=== PATIENT | female | born 1945 | race Caucasian/White ===

== ENCOUNTER 2017-10-15 08:29 | Outpatient (CLI) | payer OTHER, MEDICARE ==
[~2017-10-15 08:29] MED LIST: EXCED PO; HYDR-4100 PO; IBUP-1969 PO; LOSA100T11 PO; LOVA40TA75 PO; MAGN400T39 PO; METO-442 PO; OMEP20CA10 PO; VITD2000 PO
== END 2017-10-15 20:08 | disposition home or self-care (01) ==
LOC: SUS 08:29
PROVIDERS: ATTEND Orthopaedic Surgery
DX: M79.605 Pain in left leg (principal); M79.604 Pain in right leg; R60.0 Localized edema
CPT/HCPCS: 93970

== ENCOUNTER 2022-10-30 10:43 | Inpatient (IN) | payer OTHER, MEDICARE ==
[~2022-10-30] VITALS: Ht 167.6 cm; Wt 66.2 kg
[~2022-10-30 10:43] MED LIST changes: +HYDR-3927 PO; -HYDR-4100 PO; -LOSA100T11 PO; +LOSA100T4 PO; -OMEP20CA10 PO; +OMEP20CA15 PO
[2022-10-30 10:54] VITALS: BP_SYST 143
[2022-10-30] MEDS ORDERED: FUROSEMIDE 40 MG/4 ML VIAL IVP ONE (11:00)
[2022-10-30 11:32] LABS: BASOPHILS % (AUTO) 0.5 % (0.0-2.0); EOSINOPHILS # (AUTO) 0.1 K/uL (0.0-0.4); EOSINOPHILS % (AUTO) 2.3 % (0.0-4.0); HEMATOCRIT 39.6 % (36-48); HEMOGLOBIN 13.4 g/dL (12.0-16.0); LYMPHOCYTES # (AUTO) 0.5 K/uL (1.0-5.5); LYMPHOCYTES % (AUTO) 10.1 % (20.5-51.5); MEAN CORPUSCULAR HEMOGLOBIN 28 pg (27-31); MEAN CORPUSCULAR HGB CONC 34 % (32-36); MEAN CORPUSCULAR VOLUME 82 fL (79.0-98.0); MONOCYTES # (AUTO) 0.6 K/uL (0.0-1.0); MONOCYTES % (AUTO) 12.6 % (1.7-9.3); NEUTROPHILS # (AUTO) 3.5 K/uL (1.8-7.7); NEUTROPHILS % (AUTO) 74.5 % (40.0-70.0); PLATELET COUNT (AUTO) 158 K/uL (130-430); RED BLOOD CELL COUNT(AUTO) 4.82 MIL/uL (4.2-6.2); RED CELL DISTRIBUTION WIDTH 15.1 % (9.0-15.0); WHITE BLOOD COUNT (AUTO) 4.7 K/uL (4.8-10.8)
[2022-10-30 11:50] LABS: ALANINE AMINOTRANSFERASE 15 U/L (12-78); ALBUMIN 3.2 g/dL (3.4-4.8); ANION GAP 8 (5-15); ASPARTATE AMINOTRANSFERASE 18 U/L (10-37); CALCIUM 8.7 mg/dL (8.4-11.0); CHLORIDE 95 mmol/L (98-107); CREATININE 0.88 mg/dL (0.55-1.30); GLUCOSE 102 mg/dL (70-99); TOTAL BILIRUBIN 1.5 mg/dL (0.0-1.0); UREA NITROGEN, BLOOD 13 mg/dL (8-21)
[2022-10-30] MEDS ORDERED: LASI20 PO (12:52)
[2022-10-30] MEDS ORDERED: LORazepam 1 MG TABLET PO ONE (13:15)
[2022-10-30] MEDS ORDERED: METO25TA6 PO (14:08)
[2022-10-30] MEDS ORDERED: LOSA25TA3 PO (14:08)
[2022-10-30] MEDS ORDERED: iohexoL 350 mgI/mL, 100 ML INFUS..BTL IV ONE (14:49)
[2022-10-30] MEDS ORDERED: IPRATROPIUM/ALBUTEROL SULFATE 3 ML AMPUL.NEB (DUONEB) INH PRN (22:30)
[2022-10-30 23:05] LABS: BILIRUBIN,URINE NEGATIVE (NEGATIVE); BLOOD, URINE NEGATIVE (NEGATIVE); CLARITY/URINE CLEAR (CLEAR); COLOR,URINE YELLOW (YELLOW); GLUCOSE,URINE NEGATIVE (NEGATIVE); KETONES,URINE NEGATIVE (NEGATIVE); LEUKOCYTE ESTERASE ,URINE NEGATIVE (NEGATIVE); NITRITE, URINE POSITIVE (NEGATIVE); PH,URINE 6.5 (5.0-8.0); PROTEIN URINE NEGATIVE (NEGATIVE); UROBILINOGEN,URINE 0.2 (0.2-1.0)
[2022-10-30 23:26] LABS: BACTERIA,URINE MODERATE /HPF (None Seen); RBC,URINE 0-3 /HPF (0-3); WBC,URINE 0-3 /HPF (0-3)
[2022-10-30 23:27] LABS: MUCUS,URINE None Seen /LPF (None Seen); YEAST,URINE Few /HPF (None Seen)
[2022-10-31 00:44] VITALS: BP_SYST 145
[2022-10-31 06:09] LABS: BASOPHILS % (AUTO) 0.8 % (0.0-2.0); EOSINOPHILS # (AUTO) 0.3 K/uL (0.0-0.4); EOSINOPHILS % (AUTO) 4.7 % (0.0-4.0); HEMATOCRIT 36.7 % (36-48); HEMOGLOBIN 12.4 g/dL (12.0-16.0); LYMPHOCYTES # (AUTO) 0.5 K/uL (1.0-5.5); LYMPHOCYTES % (AUTO) 8.4 % (20.5-51.5); MEAN CORPUSCULAR HEMOGLOBIN 28 pg (27-31); MEAN CORPUSCULAR HGB CONC 34 % (32-36); MEAN CORPUSCULAR VOLUME 83 fL (79.0-98.0); MONOCYTES # (AUTO) 0.8 K/uL (0.0-1.0); MONOCYTES % (AUTO) 15.3 % (1.7-9.3); NEUTROPHILS # (AUTO) 3.9 K/uL (1.8-7.7); NEUTROPHILS % (AUTO) 70.8 % (40.0-70.0); PLATELET COUNT (AUTO) 149 K/uL (130-430); RED BLOOD CELL COUNT(AUTO) 4.43 MIL/uL (4.2-6.2); RED CELL DISTRIBUTION WIDTH 14.7 % (9.0-15.0); WHITE BLOOD COUNT (AUTO) 5.4 K/uL (4.8-10.8)
[2022-10-31 06:24] LABS: ALANINE AMINOTRANSFERASE 11 U/L (12-78); ALBUMIN 2.6 g/dL (3.4-4.8); ANION GAP 3 (5-15); ASPARTATE AMINOTRANSFERASE 15 U/L (10-37); CALCIUM 8.4 mg/dL (8.4-11.0); CHLORIDE 96 mmol/L (98-107); CREATININE 0.76 mg/dL (0.55-1.30); GLUCOSE 89 mg/dL (70-99); TOTAL BILIRUBIN 1.6 mg/dL (0.0-1.0); UREA NITROGEN, BLOOD 16 mg/dL (8-21)
[2022-10-31] MEDS: IPRATROPIUM/ALBUTEROL SULFATE 3 ML AMPUL.NEB (DUONEB) INH SCH ×6 (07:25→23:01)
[2022-10-31 07:45] VITALS: BP_SYST 133
[2022-10-31 08:13] VITALS: BP_SYST 141
[2022-10-31] MEDS: FUROSEMIDE 40 MG/4 ML VIAL IVP SCH (08:38)
[2022-10-31] MEDS: PANTOPRAZOLE SODIUM 40 MG/VIAL (PROTONIX) IVP SCH (08:38)
[2022-10-31] MEDS: LOSARTAN POTASSIUM 50 MG TABLET (COZAAR) PO SCH (08:39)
[2022-10-31] MEDS: METOPROLOL TARTRATE 50 MG TABLET PO SCH ×2 (08:40→21:10)
[2022-10-31] MEDS ORDERED: OMEPRAZOLE Non-Formulary 20 MG CAPSULE.DR PO SCH (09:00)
[2022-10-31 12:24] VITALS: BP_SYST 92
[2022-10-31] MEDS: LEVOFLOXACIN 250 MG/D5W 50 ML IV SCH (14:52)
[2022-10-31 17:11] VITALS: BP_SYST 96
[2022-10-31 20:05] VITALS: BP_SYST 109
[2022-11-01 00:47] VITALS: BP_SYST 111
[2022-11-01] MEDS: IPRATROPIUM/ALBUTEROL SULFATE 3 ML AMPUL.NEB (DUONEB) INH SCH ×5 (03:56→20:24)
[2022-11-01 08:00] VITALS: BP_SYST 132
[2022-11-01 08:05] LABS: BASOPHILS % (AUTO) 0.4 % (0.0-2.0); EOSINOPHILS # (AUTO) 0.2 K/uL (0.0-0.4); EOSINOPHILS % (AUTO) 2.9 % (0.0-4.0); HEMATOCRIT 36.8 % (36-48); HEMOGLOBIN 12.3 g/dL (12.0-16.0); LYMPHOCYTES # (AUTO) 0.4 K/uL (1.0-5.5); LYMPHOCYTES % (AUTO) 6.3 % (20.5-51.5); MEAN CORPUSCULAR HEMOGLOBIN 28 pg (27-31); MEAN CORPUSCULAR HGB CONC 34 % (32-36); MEAN CORPUSCULAR VOLUME 83 fL (79.0-98.0); MONOCYTES # (AUTO) 0.8 K/uL (0.0-1.0); MONOCYTES % (AUTO) 12.2 % (1.7-9.3); NEUTROPHILS # (AUTO) 5.1 K/uL (1.8-7.7); NEUTROPHILS % (AUTO) 78.2 % (40.0-70.0); PLATELET COUNT (AUTO) 134 K/uL (130-430); RED BLOOD CELL COUNT(AUTO) 4.44 MIL/uL (4.2-6.2); RED CELL DISTRIBUTION WIDTH 14.9 % (9.0-15.0); WHITE BLOOD COUNT (AUTO) 6.5 K/uL (4.8-10.8)
[2022-11-01 08:18] LABS: ALANINE AMINOTRANSFERASE 10 U/L (12-78); ALBUMIN 2.6 g/dL (3.4-4.8); ANION GAP 4 (5-15); ASPARTATE AMINOTRANSFERASE 18 U/L (10-37); BILIRUBIN,DIRECT 0.4 mg/dL (0.0-0.3); CALCIUM 8.5 mg/dL (8.4-11.0); CHLORIDE 94 mmol/L (98-107); CHOLESTEROL 135 mg/dL (<200); CREATININE 0.93 mg/dL (0.55-1.30); GLUCOSE 98 mg/dL (70-99); HDL CHOLESTEROL 67 mg/dL (>55); THYROID STIMULATING HORMONE 1.16 uIu/mL (0.34-4.82); TOTAL BILIRUBIN 1.5 mg/dL (0.0-1.0); TRIGLYCERIDES 26 mg/dL (30-150); UREA NITROGEN, BLOOD 17 mg/dL (8-21)
[2022-11-01] MEDS: PANTOPRAZOLE SODIUM 40 MG/VIAL (PROTONIX) IVP SCH (08:43)
[2022-11-01] MEDS: FUROSEMIDE 40 MG/4 ML VIAL IVP SCH (08:44)
[2022-11-01] MEDS ORDERED: LOSARTAN POTASSIUM 25 MG TABLET PO SCH (09:00)
[2022-11-01] MEDS: METOPROLOL TARTRATE 50 MG TABLET PO SCH ×2 (09:00→21:19)
[2022-11-01] MEDS: LOSARTAN POTASSIUM 50 MG TABLET (COZAAR) PO SCH (09:00)
[2022-11-01 09:45] VITALS: BP_SYST 92
[2022-11-01 12:07] VITALS: BP_SYST 123
[2022-11-01] MEDS: LEVOFLOXACIN 250 MG/D5W 50 ML IV SCH (12:47)
[2022-11-01 16:57] VITALS: BP_SYST 113
[2022-11-01 22:18] VITALS: BP_SYST 119
[2022-11-02 00:51] VITALS: BP_SYST 139
[2022-11-02] MEDS: IPRATROPIUM/ALBUTEROL SULFATE 3 ML AMPUL.NEB (DUONEB) INH SCH ×7 (01:17→23:00)
[2022-11-02 04:56] LABS: ANION GAP 6 (5-15); CALCIUM 8.4 mg/dL (8.4-11.0); CHLORIDE 94 mmol/L (98-107); CREATININE 0.91 mg/dL (0.55-1.30); GLUCOSE 85 mg/dL (70-99); UREA NITROGEN, BLOOD 21 mg/dL (8-21)
[2022-11-02 05:39] VITALS: BP_SYST 120
[2022-11-02 06:10] LABS: BASOPHILS % (AUTO) 0.5 % (0.0-2.0); EOSINOPHILS # (AUTO) 0.3 K/uL (0.0-0.4); EOSINOPHILS % (AUTO) 5.5 % (0.0-4.0); HEMATOCRIT 36.2 % (36-48); HEMOGLOBIN 12.4 g/dL (12.0-16.0); LYMPHOCYTES # (AUTO) 0.7 K/uL (1.0-5.5); LYMPHOCYTES % (AUTO) 10.6 % (20.5-51.5); MEAN CORPUSCULAR HEMOGLOBIN 28 pg (27-31); MEAN CORPUSCULAR HGB CONC 34 % (32-36); MEAN CORPUSCULAR VOLUME 83 fL (79.0-98.0); MONOCYTES # (AUTO) 0.8 K/uL (0.0-1.0); MONOCYTES % (AUTO) 12.7 % (1.7-9.3); NEUTROPHILS # (AUTO) 4.4 K/uL (1.8-7.7); NEUTROPHILS % (AUTO) 70.7 % (40.0-70.0); PLATELET COUNT (AUTO) 142 K/uL (130-430); RED BLOOD CELL COUNT(AUTO) 4.39 MIL/uL (4.2-6.2); WHITE BLOOD COUNT (AUTO) 6.3 K/uL (4.8-10.8)
[2022-11-02 08:00] VITALS: BP_SYST 120
[2022-11-02] MEDS ORDERED: MILK OF MAGNESIA 30 ML UDC PO ONE (08:45)
[2022-11-02] MEDS ORDERED: DOCUSATE SODIUM 250 MG CAPSULE PO PRN (08:45)
[2022-11-02] MEDS: ATORVASTATIN 10 MG TABLET PO SCH (09:35)
[2022-11-02] MEDS: METOPROLOL TARTRATE 50 MG TABLET PO SCH ×2 (09:37→22:01)
[2022-11-02] MEDS: LOSARTAN POTASSIUM 50 MG TABLET (COZAAR) PO SCH (09:38)
[2022-11-02] MEDS: FUROSEMIDE 40 MG/4 ML VIAL IVP SCH (09:50)
[2022-11-02] MEDS: PANTOPRAZOLE SODIUM 40 MG/VIAL (PROTONIX) IVP SCH (09:50)
[2022-11-02 12:05] VITALS: BP_SYST 122
[2022-11-02] MEDS: LEVOFLOXACIN 250 MG/D5W 50 ML IV SCH (12:24)
[2022-11-02] MEDS ORDERED: ALPRAZolam 0.25 MG TABLET PO PRN (13:30)
[2022-11-02 17:19] VITALS: BP_SYST 132
[2022-11-02 23:08] VITALS: BP_SYST 117
[2022-11-03] VITALS (7 sets, daily range): BP systolic 93–119
[2022-11-03] MEDS: IPRATROPIUM/ALBUTEROL SULFATE 3 ML AMPUL.NEB (DUONEB) INH SCH ×5 (03:00→23:00)
[2022-11-03 07:20] LABS: ANION GAP 4 (5-15); CALCIUM 8.5 mg/dL (8.4-11.0); CHLORIDE 93 mmol/L (98-107); CREATININE 0.89 mg/dL (0.55-1.30); GLUCOSE 89 mg/dL (70-99); UREA NITROGEN, BLOOD 32 mg/dL (8-21)
[2022-11-03 07:21] LABS: BASOPHILS # (AUTO) 0.1 K/uL (0.0-0.2); EOSINOPHILS # (AUTO) 0.4 K/uL (0.0-0.4); EOSINOPHILS % (AUTO) 6.3 % (0.0-4.0); HEMATOCRIT 37.8 % (36-48); HEMOGLOBIN 12.7 g/dL (12.0-16.0); LYMPHOCYTES # (AUTO) 0.6 K/uL (1.0-5.5); LYMPHOCYTES % (AUTO) 9.8 % (20.5-51.5); MEAN CORPUSCULAR HEMOGLOBIN 28 pg (27-31); MEAN CORPUSCULAR HGB CONC 34 % (32-36); MEAN CORPUSCULAR VOLUME 82 fL (79.0-98.0); MONOCYTES # (AUTO) 0.9 K/uL (0.0-1.0); MONOCYTES % (AUTO) 13.9 % (1.7-9.3); NEUTROPHILS # (AUTO) 4.2 K/uL (1.8-7.7); PLATELET COUNT (AUTO) 147 K/uL (130-430); RED BLOOD CELL COUNT(AUTO) 4.59 MIL/uL (4.2-6.2); RED CELL DISTRIBUTION WIDTH 15.3 % (9.0-15.0); WHITE BLOOD COUNT (AUTO) 6.2 K/uL (4.8-10.8)
[2022-11-03] MEDS: METOPROLOL TARTRATE 50 MG TABLET PO SCH ×2 (09:37→21:00)
[2022-11-03] MEDS: SERTRALINE HCL 50 MG TABLET PO SCH (09:38)
[2022-11-03] MEDS: ATORVASTATIN 10 MG TABLET PO SCH (09:39)
[2022-11-03] MEDS: LOSARTAN POTASSIUM 50 MG TABLET (COZAAR) PO SCH (09:40)
[2022-11-03] MEDS: FUROSEMIDE 40 MG/4 ML VIAL IVP SCH (09:43)
[2022-11-03] MEDS: PANTOPRAZOLE SODIUM 40 MG/VIAL (PROTONIX) IVP SCH (09:44)
[2022-11-03] MEDS: LEVOFLOXACIN 250 MG/D5W 50 ML IV SCH (12:15)
[2022-11-04 00:55] VITALS: BP_SYST 96
[2022-11-04] MEDS: IPRATROPIUM/ALBUTEROL SULFATE 3 ML AMPUL.NEB (DUONEB) INH SCH ×4 (03:00→16:14)
[2022-11-04 08:00] VITALS: BP_SYST 101
[2022-11-04] MEDS: PANTOPRAZOLE SODIUM 40 MG/VIAL (PROTONIX) IVP SCH (08:25)
[2022-11-04] MEDS: LOSARTAN POTASSIUM 50 MG TABLET (COZAAR) PO SCH (08:26)
[2022-11-04] MEDS: ATORVASTATIN 10 MG TABLET PO SCH (08:26)
[2022-11-04] MEDS: FUROSEMIDE 40 MG/4 ML VIAL IVP SCH (08:26)
[2022-11-04] MEDS: SERTRALINE HCL 50 MG TABLET PO SCH (08:27)
[2022-11-04] MEDS: METOPROLOL TARTRATE 50 MG TABLET PO SCH (08:27)
[2022-11-04] MEDS ORDERED: FUROSEMIDE 40 MG TABLET PO SCH (09:00)
[2022-11-04] MEDS: LEVOFLOXACIN 250 MG/D5W 50 ML IV SCH (11:15)
[2022-11-04 12:22] VITALS: BP_SYST 99
[2022-11-04 15:28] VITALS: BP_SYST 99
[2022-11-04 16:29] VITALS: BP_SYST 91
[2022-11-04] MEDS ORDERED: HYDROcodone/ACETAMIN 10-325 MG TAB PO PRN (16:30)
[2022-11-04] MEDS ORDERED: LOVASTATIN 20 MG TABLET PO SCH (18:00)
[2022-11-04] MEDS ORDERED: EXCEDRIN EXTRA STRENGTH PO SCH (21:00)
[2022-11-04] MEDS ORDERED: METOPROLOL TARTRATE 25 MG TABLET PO SCH (21:00)
[2022-11-05] MEDS ORDERED: IBUPROFEN 600 MG TABLET PO SCH (09:00)
[2022-11-05] MEDS ORDERED: CHOLECALCIFEROL (VITAMIN D3) 2,000 UNIT TABLET PO SCH (09:00)
== END 2022-11-04 17:54 | DRG 291 ==
LOC: SED 10:43 → STU 15:30 → SMU 11-03 21:35
PROVIDERS: ADMIT Internal Medicine; ATTEND Internal Medicine
DX: I11.0 Hypertensive heart disease with heart failure (principal); I50.23 Acute on chronic systolic (congestive) heart failure; J96.01 Acute respiratory failure with hypoxia; J44.1 Chronic obstructive pulmonary disease with (acute) exacerbation; Z96.642 Presence of left artificial hip joint; F41.9 Anxiety disorder, unspecified; E78.00 Pure hypercholesterolemia, unspecified; E78.5 Hyperlipidemia, unspecified; L40.50 Arthropathic psoriasis, unspecified; I35.0 Nonrheumatic aortic (valve) stenosis; I34.0 Nonrheumatic mitral (valve) insufficiency; G89.29 Other chronic pain; Z20.822 Contact with and (suspected) exposure to COVID-19; Z87.891 Personal history of nicotine dependence; Z88.0 Allergy status to penicillin; Z79.899 Other long term (current) drug therapy; Z81.8 Family history of other mental and behavioral disorders
CPT/HCPCS: 36415; 36600; 71045; 71275; 76376; 80048; 80053; 80061; 81000; 82248; 82550; 82803-TC; 83735; 83880; 84443; 84484; 85025; 87086; 93005; 93306; 93970; 94640; 94760; 97110-GP; 97116-GP; 97163-GP; 97530-GP; 99285; C9113; G0378; J1940; J1956; Q9967

== ENCOUNTER 2023-06-01 15:29 | Inpatient (IN) | payer OTHER, MEDICARE ==
[~2023-06-01] VITALS: Ht 165.1 cm; Wt 63.5 kg
[~2023-06-01 15:29] MED LIST changes: +LASI20 PO; +LOSA-415 PO; -LOSA100T4 PO
[2023-06-01 15:41] VITALS: BP_SYST 141; PULSE 79; RESP 20; TEMP 98; O2SAT 98
[2023-06-01] MEDS ORDERED: ACETAMINOPHEN 500 MG TABLET PO ONE (16:15)
[2023-06-01] MEDS ORDERED: NALOXONE HCL 0.4 MG/ML AMP (NARCAN) IVP PRN ×3 (19:30)
[2023-06-01] MEDS ORDERED: HYDROmorphone 1 MG/ML INJ. CARTRIDGE IVP PRN (19:30)
[2023-06-01] MEDS ORDERED: HYDROcodone/ACETAMIN 10-325 MG TAB PO PRN (19:30)
[2023-06-01] MEDS ORDERED: HYDROcodone/ACETAMIN 5-325 MG TAB (NORCO/ VICODIN) PO PRN (19:45)
[2023-06-01] MEDS ORDERED: ACET325T39 PO (20:47)
[2023-06-01] MEDS ORDERED: LOVA40TA75 PO (20:47)
[2023-06-01] MEDS ORDERED: MAGN400T7 PO (20:47)
[2023-06-01] MEDS ORDERED: [UNRECOGNIZED DRUG - CODE] PO (20:47)
[2023-06-01] MEDS ORDERED: FURO40TA5 PO (20:47)
[2023-06-01] MEDS ORDERED: DOCU250C71 PO (20:47)
[2023-06-01] MEDS ORDERED: ANT30 PO (20:47)
[2023-06-01] MEDS ORDERED: BISA10SU61 RC (20:47)
[2023-06-01] MEDS ORDERED: LOPE-178 PO (20:47)
[2023-06-01] MEDS ORDERED: HYDR-3927 PO (20:47)
[2023-06-01] MEDS ORDERED: LORA-259 PO (20:47)
[2023-06-01] MEDS ORDERED: IPRA3AMP19 INH (20:47)
[2023-06-01] MEDS ORDERED: SERT25TA PO (20:47)
[2023-06-01] MEDS ORDERED: MELA5TAB50 PO (20:47)
[2023-06-01] MEDS ORDERED: SENNS PO (20:47)
[2023-06-01] MEDS ORDERED: BACL5TAB PO (20:47)
[2023-06-01] MEDS ORDERED: LOSA-413 PO (20:47)
[2023-06-01] MEDS ORDERED: CHOL100034 PO (20:47)
[2023-06-01] MEDS ORDERED: MOM PO (20:47)
[2023-06-01] MEDS ORDERED: DIPH28.44 (20:47)
[2023-06-01 22:29] VITALS: BP_SYST 156; PULSE 46; RESP 18; TEMP 97.1; O2SAT 96
[2023-06-02 00:15] VITALS: BP_SYST 156; PULSE 45; RESP 18; TEMP 97.1; O2SAT 94
[2023-06-02] MEDS: METOPROLOL TARTRATE 50 MG TABLET PO SCH ×4 (01:01→20:21)
[2023-06-02] MEDS: ENOXAPARIN SODIUM 40 MG/0.4 ML SYRINGE SUBCUT SCH ×2 (01:01→20:21)
[2023-06-02] MEDS: BACLOFEN 10 MG TABLET PO SCH ×3 (01:14→20:20)
[2023-06-02 08:00] VITALS: BP_SYST 110; PULSE 78; RESP 18; TEMP 97; O2SAT 99
[2023-06-02] MEDS ORDERED: IBUPROFEN 600 MG TABLET PO SCH (09:00)
[2023-06-02] MEDS ORDERED: NON-FORMULARY MEDICATION (Losartan Potassium (Cozaar) 100 MG) PO SCH (09:00)
[2023-06-02] MEDS ORDERED: OMEPRAZOLE Non-Formulary 20 MG CAPSULE.DR PO SCH (09:00)
[2023-06-02] MEDS ORDERED: NON-FORMULARY MEDICATION (Magnesium Oxide (Magnesium) 500 MG) PO SCH (09:00)
[2023-06-02] MEDS ORDERED: EXCEDRIN EXTRA STRENGTH PO SCH (09:00)
[2023-06-02] MEDS: MAGNESIUM OXIDE 400 MG TABLET PO SCH (09:47)
[2023-06-02] MEDS: PANTOPRAZOLE SODIUM 40 MG TAB PO SCH (09:50)
[2023-06-02] MEDS: ATORVASTATIN 10 MG TABLET PO SCH (09:50)
[2023-06-02] MEDS: CHOLECALCIFEROL (VITAMIN D3) 2,000 UNIT TABLET PO SCH (09:50)
[2023-06-02] MEDS: LOSARTAN POTASSIUM 50 MG TABLET (COZAAR) PO SCH (09:51)
[2023-06-02 12:40] VITALS: BP_SYST 105; PULSE 74; RESP 18; TEMP 97.2; O2SAT 98
[2023-06-02 16:00] VITALS: BP_SYST 97; PULSE 73; RESP 18; TEMP 97.1; O2SAT 97
[2023-06-02] MEDS ORDERED: LOVASTATIN 20 MG TABLET PO SCH (18:00)
[2023-06-02 20:00] VITALS: BP_SYST 102; PULSE 65; RESP 18; TEMP 97.6; O2SAT 99
[2023-06-02] MEDS: CALCIUM 500 MG/TAB PO SCH (20:20)
[2023-06-02 21:32] VITALS: O2SAT 98
[2023-06-03 01:10] VITALS: BP_SYST 105; PULSE 50; RESP 17; TEMP 97.6; O2SAT 98
[2023-06-03 06:52] LABS: BASOPHILS % (AUTO) 0.5 % (0.0-2.0); EOSINOPHILS # (AUTO) 0.1 K/uL (0.0-0.4); EOSINOPHILS % (AUTO) 2.5 % (0.0-4.0); HEMATOCRIT 42.7 % (36-48); HEMOGLOBIN 14.1 g/dL (12.0-16.0); LYMPHOCYTES # (AUTO) 0.7 K/uL (1.0-5.5); LYMPHOCYTES % (AUTO) 12.7 % (20.5-51.5); MEAN CORPUSCULAR HEMOGLOBIN 28 pg (27-31); MEAN CORPUSCULAR HGB CONC 33 % (32-36); MEAN CORPUSCULAR VOLUME 85 fL (79.0-98.0); MONOCYTES # (AUTO) 0.6 K/uL (0.0-1.0); MONOCYTES % (AUTO) 9.9 % (1.7-9.3); NEUTROPHILS # (AUTO) 4.2 K/uL (1.8-7.7); NEUTROPHILS % (AUTO) 74.4 % (40.0-70.0); PLATELET COUNT (AUTO) 156 K/uL (130-430); RED BLOOD CELL COUNT(AUTO) 5.04 MIL/uL (4.2-6.2); WHITE BLOOD COUNT (AUTO) 5.6 K/uL (4.8-10.8)
[2023-06-03 07:45] VITALS: O2SAT 97
[2023-06-03 07:54] LABS: ANION GAP 5 (5-15); CARBON DIOXIDE 30 mmol/L (23-29); CHLORIDE 102 mmol/L (98-107); CREATININE 0.62 mg/dL (0.55-1.30); GLUCOSE 91 mg/dL (74-106); POTASSIUM 3.9 mmol/L (3.5-5.1); SODIUM SERUM 137 mmol/L (136-145); UREA NITROGEN, BLOOD 17 mg/dL (8-21)
[2023-06-03] MEDS: BACLOFEN 10 MG TABLET PO SCH ×2 (09:00→20:24)
[2023-06-03] MEDS: ATORVASTATIN 10 MG TABLET PO SCH (09:36)
[2023-06-03] MEDS: PANTOPRAZOLE SODIUM 40 MG TAB PO SCH (09:36)
[2023-06-03] MEDS: MAGNESIUM OXIDE 400 MG TABLET PO SCH (09:37)
[2023-06-03] MEDS: METOPROLOL TARTRATE 50 MG TABLET PO SCH ×2 (09:37→20:25)
[2023-06-03] MEDS: LOSARTAN POTASSIUM 50 MG TABLET (COZAAR) PO SCH (09:37)
[2023-06-03] MEDS: CHOLECALCIFEROL (VITAMIN D3) 2,000 UNIT TABLET PO SCH (09:37)
[2023-06-03] MEDS: CALCIUM 500 MG/TAB PO SCH ×2 (09:37→20:24)
[2023-06-03] MEDS: SERTRALINE HCL 50 MG TABLET PO SCH (09:38)
[2023-06-03] MEDS ORDERED: FUROSEMIDE 40 MG TABLET PO ONE (13:00)
[2023-06-03 16:00] VITALS: BP_SYST 111; PULSE 76; RESP 19; TEMP 98.4; O2SAT 99
[2023-06-03 20:00] VITALS: BP_SYST 105; PULSE 71; RESP 18; TEMP 98.4; O2SAT 98
[2023-06-03] MEDS: MEGESTROL ACETATE 400 MG/10 ML UDC PO SCH (20:25)
[2023-06-03] MEDS: ENOXAPARIN SODIUM 40 MG/0.4 ML SYRINGE SUBCUT SCH (20:25)
[2023-06-03 21:39] VITALS: O2SAT 98
[2023-06-04 00:04] VITALS: BP_SYST 99; PULSE 75; RESP 18; TEMP 97.1; O2SAT 97
[2023-06-04 08:05] VITALS: BP_SYST 108; PULSE 66; RESP 18; TEMP 96.5
[2023-06-04] MEDS: CALCIUM 500 MG/TAB PO SCH ×2 (08:19→20:35)
[2023-06-04] MEDS: METOPROLOL TARTRATE 50 MG TABLET PO SCH ×2 (08:19→20:35)
[2023-06-04] MEDS: PANTOPRAZOLE SODIUM 40 MG TAB PO SCH (08:19)
[2023-06-04] MEDS: BACLOFEN 10 MG TABLET PO SCH ×2 (08:20→20:35)
[2023-06-04] MEDS: CHOLECALCIFEROL (VITAMIN D3) 2,000 UNIT TABLET PO SCH (08:20)
[2023-06-04] MEDS: SERTRALINE HCL 50 MG TABLET PO SCH (08:20)
[2023-06-04] MEDS: FUROSEMIDE 40 MG TABLET PO SCH (08:20)
[2023-06-04] MEDS: ATORVASTATIN 10 MG TABLET PO SCH (08:20)
[2023-06-04] MEDS: MEGESTROL ACETATE 400 MG/10 ML UDC PO SCH ×2 (08:21→20:35)
[2023-06-04] MEDS: LOSARTAN POTASSIUM 50 MG TABLET (COZAAR) PO SCH (08:21)
[2023-06-04] MEDS: MAGNESIUM OXIDE 400 MG TABLET PO SCH (08:21)
[2023-06-04 10:48] VITALS: O2SAT 97
[2023-06-04 12:00] VITALS: BP_SYST 121; PULSE 56; RESP 15; TEMP 97.5; O2SAT 99
[2023-06-04] MEDS ORDERED: MILK OF MAGNESIA 30 ML UDC PO ONE (15:15)
[2023-06-04 16:00] VITALS: BP_SYST 93; PULSE 66; RESP 18; TEMP 97.3; O2SAT 94
[2023-06-04 20:00] VITALS: BP_SYST 96; PULSE 68; RESP 18; TEMP 97.8; O2SAT 95
[2023-06-04] MEDS: ENOXAPARIN SODIUM 40 MG/0.4 ML SYRINGE SUBCUT SCH (20:36)
[2023-06-04] MEDS: DOCUSATE SODIUM 100 MG CAPSULE PO SCH (20:36)
[2023-06-05] VITALS (8 sets, daily range): BP systolic 95–111; PULSE 40–75; RESP 16–18; TEMP 97.6–98.4; O2SAT 96
[2023-06-05] MEDS: BACLOFEN 10 MG TABLET PO SCH (08:37)
[2023-06-05] MEDS: CALCIUM 500 MG/TAB PO SCH (08:37)
[2023-06-05] MEDS: PANTOPRAZOLE SODIUM 40 MG TAB PO SCH (08:37)
[2023-06-05] MEDS: DOCUSATE SODIUM 100 MG CAPSULE PO SCH (08:37)
[2023-06-05] MEDS: SERTRALINE HCL 50 MG TABLET PO SCH (08:37)
[2023-06-05] MEDS: MAGNESIUM OXIDE 400 MG TABLET PO SCH (08:37)
[2023-06-05] MEDS: CHOLECALCIFEROL (VITAMIN D3) 2,000 UNIT TABLET PO SCH (08:37)
[2023-06-05] MEDS: ATORVASTATIN 10 MG TABLET PO SCH (08:38)
[2023-06-05] MEDS: LOSARTAN POTASSIUM 50 MG TABLET (COZAAR) PO SCH (08:38)
[2023-06-05] MEDS: FUROSEMIDE 40 MG TABLET PO SCH (08:38)
[2023-06-05] MEDS: METOPROLOL TARTRATE 50 MG TABLET PO SCH (08:39)
[2023-06-05] MEDS: MEGESTROL ACETATE 400 MG/10 ML UDC PO SCH (08:39)
[2023-06-05] MEDS ORDERED: BISACODYL 10 MG/SUPPOSITORY RC PRN (17:45)
[2023-06-05] MEDS ORDERED: MILK OF MAGNESIA 30 ML UDC PO PRN (17:45)
== END 2023-06-05 20:15 | DRG 544 ==
LOC: SED 15:29 → SMU 18:24 → STU 06-02 00:01 → SMU 06-04 14:01 → STU 06-04 22:50
PROVIDERS: ADMIT Family Medicine; ATTEND Family Medicine
DX: M48.56XA Collapsed vertebra, not elsewhere classified, lumbar region, initial encounter for fracture (principal); M48.52XA Collapsed vertebra, not elsewhere classified, cervical region, initial encounter for fracture; I10 Essential (primary) hypertension; M81.0 Age-related osteoporosis without current pathological fracture; E78.00 Pure hypercholesterolemia, unspecified; Z88.0 Allergy status to penicillin; Z79.899 Other long term (current) drug therapy
CPT/HCPCS: 36415; 80048; 83735; 85025; 93005; 93306; 97110-GP; 97116-GP; 97530-GP; 99285; G0378; J1650